=== PATIENT | female | born 1950 | race Caucasian/White ===

== ENCOUNTER 2016-08-06 13:38 | Inpatient (IN) | payer SELFPAY ==
--- NOTE | ~2016-08-06 | HP ---
Unit #: [id number] #: [id number] Patient: CORWIN FERMIN [id number] [facility]. [place], [place] [address] [id number] I MR#: [id number] NAME: CORWIN FERMIN. ROOM: [facility] Age: 66 Sex: F Admission Date: 08/06/2016 : 1950 Attending Physician: Lakisha Lopez M.D. HISTORY AND PHYSICAL CHIEF COMPLAINT Shortness of breath. HISTORY OF PRESENT ILLNESS This pleasant 66-year-old female with hypertension and chronic pain was transferred from [facility] Emergency Department for shortness of breath. The patient states that she was well until about two weeks ago when she developed an upper respiratory tract infection and was treated possibly with Cipro. I believe she initially improved and then developed sudden onset of flu-like symptoms with fevers, diarrhea, and increasing deep cough. Her grandchild had tested flu positive and she was in contact with the grandchild. Her flu-like symptoms did improve, but she now is experiencing increasing shortness of breath, intermittent wheezing, and deep cough productive of white sputum. Denies chest pain with the above or previous history of lung disease. She borrowed her neighbor's ProAir inhaler this morning and states that that did help. She went to [facility] Emergency Department around noon today, and her O2 saturations were noted intermittently to be low. She was treated with Tussionex, Solu-Medrol, DuoNeb, IV fluids, and aspirin. She was sent to this facility where on two liters her O2 saturation was only 88%. On examination, she does have rhonchi, diminished breath sounds, and increased I to E ratio. She does sound to be quite congested. Chest x-ray shows no acute disease. EKG is essentially normal. In reviewing her labs, she does have a white blood count of 2.4 which could be consistent with a virus. A D-dimer was performed and was mildly elevated, but a CT scan was not performed at [facility] ER. Patient denies chest pain with the above. PAST MEDICAL HISTORY 1. Chronic neck pain. 2. Anxiety. 3. Hypertension. 4. Palpitations. ALLERGIES No known drug allergies. HOME MEDICATIONS 1. Toprol-XL 25 mg daily. 2. Xanax 0.5 mg at bedtime. Unit #: [id number] #: [id number] Patient: CORWIN FERMIN 3. Lortab 7.5, one-half to 1 tablet t.i.d. FAMILY HISTORY Negative for heart or lung disease. SOCIAL HISTORY The patient lives with her . She works cleaning homes. She has smoked one pack per day of tobacco from age 18 until recently. She does not drink alcohol. REVIEW OF SYSTEMS Notable for shortness of breath, cough, chest congestion, recent flu-like symptoms, tobacco use, chronic neck pain, anxiety, hypertension, and wheezing. All other systems were reviewed and are negative. PHYSICAL EXAMINATION GENERAL: A pleasant, thin, 66-year-old female currently in no acute distress. VITAL SIGNS: Temperature 98.1, pulse 71, respirations 18, O2 saturation 92% on 4 liters of oxygen, and blood pressure 121/70. HEENT: Eyes PERRLA. Extraocular muscles are intact. Pharynx is benign with dentures in place. NECK: Supple without adenopathy or thyromegaly. CHEST: Diminished breath sounds, rhonchus, congested, with increased I to E ratio. CARDIAC: Normal S1 and S2 without murmur. ABDOMEN: Bowel sounds are present. No hepatosplenomegaly, tenderness, or masses. EXTREMITIES: Without clubbing, cyanosis, or edema. NEUROLOGIC: Patient is awake, alert, and oriented. Cranial nerves are intact. Equal strength throughout. DIAGNOSTIC STUDIES LABORATORY: Hematocrit is 44.3, white blood count is 2.4, and platelet count is 132,000. SMA-12: Potassium 3.3 and chloride is 95. D-dimer 305 which is mildly elevated. Influenza swabs negative. IMAGING: Chest x-ray with no acute disease. CARDIOLOGY: EKG normal sinus rhythm, rate 66, normal appearing. ASSESSMENT 1. Likely new diagnosis of chronic obstructive pulmonary disease with bronchitis and acute hypoxic respiratory failure after influenza. 2. Tobacco abuse. 3. Hypertension. 4. Chronic neck pain. PLANS 1. Sputum C and S and start doxycycline empirically. 2. Steroids, mucolytics, and bronchodilators. 3. If not improving, will obtain a CTA of the chest. There is nothing on examination currently that makes me suspicious for a pulmonary embolus as a cause of the patient's respiratory failure. 4. DVT and gastritis prophylaxis. 5. Smoking cessation counseling. 1. Unit #: [id number] #: [id number] Patient: CORWIN FERMIN Dictated by Verna Awad M.D. AML/am TD: 08/06/2016 21:16 JOB #: [id number] HISTORY AND PHYSICAL X Verna Awad MD X HISTORY AND PHYSICAL
--- NOTE | ~2016-08-06 | DS ---
Unit #: [id number] #: [id number] Patient: CORWIN FERMIN [id number] [facility] [address] [facility]. [place], [place] [address] [id number] I MR#: [id number] NAME: CORWIN FERMIN. ROOM: [facility] Age: 66 Sex: F Admission Date: 08/06/2016 : 1950 Discharge Date: 08/08/2016 Attending Physician: Ambika Staton M.D. Primary Care Physician: No Primary Care Physician DISCHARGE SUMMARY DIAGNOSIS ON ADMISSION Shortness of air. DIAGNOSES ON DISCHARGE 1. Acute exacerbation of chronic obstructive pulmonary disease. 2. Chronic obstructive pulmonary disease. 3. Acute respiratory failure, improved. 4. Hypertension. 5. Anxiety disorder. CONSULTATIONS Dr. Lopez in Pulmonary consultation. LABS AND PROCEDURES DONE 1. The patient's influenza A and B screen was negative. 2. Magnesium was 2.3. 3. Chest x-ray did not reveal any active disease. 4. The patient's creatinine is 0.7, sodium 140, potassium 4.1. 5. WBC was 10.1, hemoglobin 12.9, platelet count 155. HOSPITAL COURSE This 66-year-old patient was presented to [facility] with shortness of air. Details are as per admission H and P. The patient was treated for acute respiratory failure secondary to exacerbation of COPD with IV Solu-Medrol and antibiotics. The patient responded well to treatment and is feeling much better. PHYSICAL EXAMINATION VITAL SIGNS: Today, on physical examination, the patient's vital signs revealed temperature of 98.6, pulse 80 per minute, respiratory rate 18 per minute, blood pressure 120/85. HEENT: No conjunctival congestion. Sclerae nonicteric. NECK: Supple. Trachea is central. RESPIRATORY: Examination revealed breath sounds equal bilaterally. There are no wheezes or crackles. HEART: Regular rate and rhythm. S1, S2. ABDOMEN: Soft and nontender. Bowel sounds present in all four quadrants. NEUROLOGIC: The patient is alert to person, place and time. Power is 5/5 bilaterally. Sensations are grossly intact. SKIN: Warm and dry. RECOMMENDATIONS ON DISCHARGE Condition is stable. Unit #: [id number] #: [id number] Patient: JENY,CORWIN A ACTIVITY As tolerated. MEDICATIONS 1. Doxycycline 100 mg p.o. daily for five days. 2. Medrol Dosepak as directed. 3. Albuterol MDI two puffs q.2 hours p.r.n. shortness of air. FOLLOWUP 1. The patient is advised to follow with Dr. Lopez in two to three weeks. 2. The patient is advised to follow with primary care physician in one week. 3. The patient is advised to call primary care physician and go to ER if her condition changes. Dictated by... Gabriel Garcia/mariella TD: 08/08/2016 12:55 JOB #: [id number] DISCHARGE SUMMARY X Ambika Staton MD X DISCHARGE SUMMARY
--- NOTE | ~2016-08-06 | CO ---
Unit #: [id number] #: [id number] Patient: CORWIN FERMIN [id number] [place], [place] [address] [id number] I MR#: [id number] NAME: CORWIN FERMIN. ROOM: [facility] Age: 66 Sex: F Admission Date: 08/06/2016 : 1950 Attending Physician: Ambika Staton M.D. Primary Care Physician: Nolvia Primary Care Physician Consultation Date: 08/08/2016 CONSULTATION REPORT REASON FOR CONSULT Bronchitis. HISTORY OF PRESENT ILLNESS This is a very pleasant, 66-year-old female with past medical history significant for extensive smoking of one pack per day at least since age 18, who presented to the emergency room with difficulty breathing, cough and flulike symptoms. Patient stated that she has been caring for a grandkid who was tested positive for the flu and she was having the same symptoms but then on the day of admission she woke up unable to breathe at all. Patient denies any nausea, vomiting or diarrhea. Patient is not on oxygen at home and she does not take any inhalers. She has never been diagnosed with COPD. Patient tried multiple courses of smoking cessation but she could not quit. Patient continues to work. PAST MEDICAL HISTORY 1. Anxiety. 2. Hypertension. 3. Chronic neck pain. PAST SURGICAL HISTORY None. ALLERGIES No known drug allergies. HOME MEDICATION 1. Toprol-XL. 2. Xanax. 3. Lortab. FAMILY HISTORY Negative for heart disease or lung disease. SOCIAL HISTORY Patient lives with her . She works cleaning homes. She smokes one pack per day at least since age 18. No history of alcohol or Unit #: [id number] #: [id number] Patient: CORWIN FERMIN drug abuse. REVIEW OF SYSTEMS Twelve-point review of systems was obtained and was negative except for what was mentioned in the HPII. PHYSICAL EXAMINATION GENERAL: The patient is very pleasant, in no acute distress. HEENT: Normocephalic and atraumatic. PERRLA. EOMI. NECK: Supple. No JVD. No lymphadenopathy. CHEST: Bilateral fine rhonchi at the bases with scattered wheezing. HEART: S1, S2. No murmur, gallops or rubs. ABDOMEN: Soft, nontender. Bowel sound is positive. No hepatosplenomegaly. EXTREMITIES: No edema or cyanosis. SKIN: No rashes. PROGRAM DEVELOPER: Awake, alert, oriented x3. No focal motor/sensory deficits. DIAGNOSTIC STUDIES LABORATORY: Creatinine 0.7, sodium 140, white blood count 10.1, platelets 155. IMAGING: Chest x-ray is negative for acute infiltrate. ASSESSMENT 1. Acute hypoxic respiratory failure. 2. Acute bronchitis 3. Rule out chronic obstructive pulmonary disease. 4. Hypertension. 5. Anxiety. PLAN 1. Patient was tested negative for the flu and she is late on treatment anyhow. 2. Will continue patient on doxycycline and finish five days. 3. IV steroid and will change to Medrol on discharge. 4. Bronchodilator and mucolytics. 5. Patient will need PFTs as an outpatient. 6. Patient does not need probably oxygen on discharge if her sat is above 86%/87% as this is likely going to be temporary and she will recover from this incident. Dictated by... Carmen Lopez M.D. EA/maksim TD: 08/08/2016 16:51 JOB #: [id number] Unit #: [id number] #: [id number] Patient: CORWIN FERMIN CONSULTATION REPORT X CARMEN VARGAS MD X CONSULTATION REPORT
--- NOTE | ~2016-08-06 | CR72 ---
[facility]. [facility] A Service of [facility] RADIOLOGY TEXT RESULTS PATIENT: CORWIN FERMIN LOCATION: [facility] 315-01 : [birth year] UNIT #: [id number] AGE: [address]: Ambika Staton MD SEX: F ORDER DR: [id number] [address] [address] [id number] MR#: [id number] Acc #: [id number] NAME: CORWIN FERMIN : 1950 SEX: F STUDY DATE/TIME: 08/06/2016 15:00 UNIT: SED ROOM: STUDY DESCRIPTION: CR Chest Single View Portable Attending Physician: Rob Varela M.D. Ordering Physician: Lucius Kulkarni M.D. Primary Care Physician: No Primary Care Physician MEDICAL IMAGING REPORT This report is preliminary unless electronic signature is present. EXAM Portable chest, 08/06/2016. HISTORY Shortness of air. Symptoms for 4 days. FINDINGS A portable view of the chest was obtained. The heart size and vascularity are normal, and the lungs are clear. The bones are unremarkable. IMPRESSION No active disease. Dictated by... Rob Lucero M.D. THIS IS AN ELECTRONICALLY VERIFIED REPORT Rob Lucero M.D. at 08/07/2016 1:52 PM RAYA/abi TD: 08/06/2016 19:12 JOB #: [id number] MEDICAL IMAGING REPORT
--- NOTE | ~2016-08-06 | EKG ---
PATIENT: CORWIN FERMIN UNIT #: [id number] Ventricular Rate: 66 BPM Atrial Rate: 66 BPM P-R Interval: 122 ms QRS Duration: 62 ms Q-T Interval: 422 ms QTC Calculation(Bezet): 442 ms P [place]: 72 degrees Calculated R [place]: 63 degrees Calculated T [place]: 45 degrees Diagnosis Line: Sinus rhythm Diagnosis Line: Cannot rule out Septal infarct (cited on or before Diagnosis Line: 23-NOV-2010) Diagnosis Line: Borderline ECG Diagnosis Line: When compared with ECG of 23-NOV-2010 22:15, Diagnosis Line: Premature supraventricular complexes are now Diagnosis Line: Present Diagnosis Line: Confirmed by RIGO PERDOMO MD ([id number]) on 08/07/2016 Diagnosis Line: 9:09:45 AM INTERPRETING MD: LEANNE YUAN
[2016-08-06 13:31] LABS: BASOPHIL% 1.4 % (0-2.5); HEMATOCRIT 44.3 % (35.0-45.0); HEMOGLOBIN 14.8 gm/dL (12.0-16.0); LYMPHOCYTE% 41.3 % (17.0-45.0); MEAN CELL VOLUME 91.7 FL (83-96); MEAN CORPUSCULAR HEMOGLOBIN 30.6 PG (28-34); MEAN CORPUSCULAR HGB CONC 33.4 g/dL (30-36); MEAN PLATELET VOLUME 8.5 FL (6.5-11.5); MONOCYTE# 0.5 X10e3 (0-1.0); MONOCYTE% 20.7 % (3.0-12.0); NEUTROPHIL# 0.9 X10e3 (1.5-7.1); NEUTROPHIL% 36.6 % (40-75); PLATELET COUNT 132 X10e3 (140-420); RED BLOOD COUNT 4.83 X10e (3.90-5.30); RED CELL DISTRIBUTION WIDTH 12.4 % (11.0-15.5); WHITE BLOOD COUNT 2.4 X10e3 (4.0-10.5)
[2016-08-06 13:32] LABS: DIFF IND NO
[~2016-08-06 13:38] MED LIST: ALPRAZOLAM; NORCO1 TAB 10/3; TOPROL XL
[2016-08-06 13:42] LABS: POC - CKMB <1.0 ng/mL (0.0-7.9); POC - MYOGLOBIN 41.4 ng/mL (0.0-169.0); POC - TROPONIN <0.05 ng/mL (<=0.05)
[2016-08-06 13:54] LABS: ALBUMIN SERUM 4.2 g/dL (3.5-5.0); ALKALINE PHOSPHATASE 66 U/L (32-92); ALT (SGPT) 27 U/L (10-40); AST (SGOT) 38 U/L (10-42); BILIRUBIN, DIRECT 0.1 mg/dL (0.0-0.2); BILIRUBIN,INDIRECT 0.1 mg/dL (0.0-0.9); BILIRUBIN,TOTAL 0.2 mg/dL (0.2-2.0); BLOOD UREA NITROGEN 8 mg/dL (9-23); BUN/CREATININE RATIO 11.42; CALCIUM SERUM 8.7 mg/dL (8.4-10.2); CARBON DIOXIDE 31 mmol/L (22-31); CHLORIDE 95 mmol/L (100-111); CREATININE SERUM 0.7 mg/dL (0.6-1.4); GLOM FILT RATE Estimated ABOVE60 mL/min (>60); GLUCOSE FASTING 110 mg/dL (70-110); POTASSIUM 3.3 mmol/L (3.5-5.1); PROTEIN TOTAL SERUM 7.2 g/dL (6.0-8.3); SODIUM 137 mmol/L (135-145)
[2016-08-06 14:43] LABS: INFLUENZA A NEG (NEG); INFLUENZA B NEG (NEG)
[2016-08-06] MEDS ORDERED: METOPROLOL SUCC25 MG PO (23:08)
[2016-08-06] MEDS ORDERED: NORCO 7.5-3251 EACH PO (23:10)
[2016-08-06] MEDS ORDERED: ALPRAZOLAM0.25 MG PO (23:12)
[2016-08-07 05:32] LABS: BASOPHIL% 0.2 % (0-2.5); HEMATOCRIT 40.2 % (35.0-45.0); HEMOGLOBIN 13.3 gm/dL (12.0-16.0); LYMPHOCYTE# 0.8 X10e3 (1.0-3.5); LYMPHOCYTE% 14.4 % (17.0-45.0); MEAN CELL VOLUME 91.5 FL (83-96); MEAN CORPUSCULAR HEMOGLOBIN 30.2 PG (28-34); MEAN PLATELET VOLUME 9.1 FL (6.5-11.5); MONOCYTE# 0.3 X10e3 (0-1.0); MONOCYTE% 5.8 % (3.0-12.0); NEUTROPHIL# 4.5 X10e3 (1.5-7.1); NEUTROPHIL% 79.6 % (40-75); PLATELET COUNT 141 X10e3 (140-420); RED BLOOD COUNT 4.39 X10e (3.90-5.30); RED CELL DISTRIBUTION WIDTH 12.4 % (11.0-15.5)
[2016-08-07 05:36] LABS: DIFF IND NO; WHITE BLOOD COUNT 5.6 X10e3 (4.0-10.5)
[2016-08-07 06:13] LABS: BLOOD UREA NITROGEN 12 mg/dL (9-23); CALCIUM SERUM 8.7 mg/dL (8.4-10.2); CARBON DIOXIDE 32 mmol/L (22-31); CHLORIDE 100 mmol/L (100-111); CREATININE SERUM 0.6 mg/dL (0.6-1.4); GLOM FILT RATE Estimated ABOVE60 mL/min (>60); GLUCOSE FASTING 129 mg/dL (70-110); POTASSIUM 4.5 mmol/L (3.5-5.1); SODIUM 141 mmol/L (135-145)
[2016-08-08 07:14] LABS: HEMATOCRIT 39.1 % (35.0-45.0); HEMOGLOBIN 12.9 gm/dL (12.0-16.0); MEAN CELL VOLUME 91.5 FL (83-96); MEAN CORPUSCULAR HEMOGLOBIN 30.1 PG (28-34); MEAN CORPUSCULAR HGB CONC 32.9 g/dL (30-36); MEAN PLATELET VOLUME 9.3 FL (6.5-11.5); RED BLOOD COUNT 4.27 X10e (3.90-5.30); RED CELL DISTRIBUTION WIDTH 12.6 % (11.0-15.5)
[2016-08-08 07:38] LABS: WHITE BLOOD COUNT 10.1 X10e3 (4.0-10.5)
[2016-08-08 08:04] LABS: BLOOD UREA NITROGEN 19 mg/dL (9-23); BUN/CREATININE RATIO 27.14; CALCIUM SERUM 8.5 mg/dL (8.4-10.2); CARBON DIOXIDE 28 mmol/L (22-31); CHLORIDE 103 mmol/L (100-111); CREATININE SERUM 0.7 mg/dL (0.6-1.4); GLOM FILT RATE Estimated ABOVE60 mL/min (>60); GLUCOSE FASTING 139 mg/dL (70-110); POTASSIUM 4.1 mmol/L (3.5-5.1); SODIUM 140 mmol/L (135-145)
[2016-08-08] MEDS ORDERED: TYL325 PO (13:46)
[2016-08-08] MEDS ORDERED: VIBRAMYCIN100 M1 PO (13:49)
[2016-08-08] MEDS ORDERED: MEDROL4 MG/DOSE- PO (13:50)
[2016-08-08] MEDS ORDERED: ALBUTEROL20 ml INH (13:52)
== END 2016-08-08 16:14 | disposition home or self-care (01) | DRG 190 ==
LOC: SED 13:38 → C3A PCU 16:37
PROVIDERS: Emergency Medicine; Internal Medicine
DX: J44.0 Chronic obstructive pulmonary disease with (acute) lower respiratory infection (principal); J96.01 Acute respiratory failure with hypoxia; J44.1 Chronic obstructive pulmonary disease with (acute) exacerbation; J20.9 Acute bronchitis, unspecified; F17.210 Nicotine dependence, cigarettes, uncomplicated; I10 Essential (primary) hypertension; F41.9 Anxiety disorder, unspecified; R19.7 Diarrhea, unspecified; M54.2 Cervicalgia; Z71.6 Tobacco abuse counseling
CPT/HCPCS: 36415; 71010; 80048; 80076; 82553; 83735; 83874; 83880; 84484; 85025; 85027; 85379; 87804; 93005; 94640; 94760; 96361; 96374; 99285; 99406; J1650; J2920; J2930